=== PATIENT | male | born 2000 | race Caucasian/White ===

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

== ENCOUNTER → 2020-01-09 | Outpatient (CLI) | payer OTHER | LOC: BHSO 13:00 | DX: F41.1 Generalized anxiety disorder (principal) ==

== ENCOUNTER → 2020-01-30 | Outpatient (CLI) | payer OTHER | LOC: BHSO 13:52 | DX: F41.1 Generalized anxiety disorder (principal) ==

== ENCOUNTER → 2020-02-13 | Outpatient (CLI) | payer OTHER | LOC: BHSO 14:59 | DX: F41.1 Generalized anxiety disorder (principal) ==

== ENCOUNTER → 2020-03-05 | Outpatient (CLI) | payer OTHER | LOC: BHSO 14:24 | DX: F41.1 Generalized anxiety disorder (principal) ==

== ENCOUNTER → 2020-03-19 | Outpatient (CLI) | payer OTHER | LOC: BHSO 13:57 | DX: F41.1 Generalized anxiety disorder (principal) ==

== ENCOUNTER → 2020-05-02 | Outpatient (CLI) | payer OTHER | LOC: BHSO 15:01 | DX: F41.1 Generalized anxiety disorder (principal) ==

== ENCOUNTER → 2020-05-16 | Outpatient (CLI) | payer OTHER | LOC: BHSO 09:59 | DX: F41.1 Generalized anxiety disorder (principal) ==

== ENCOUNTER → 2020-05-30 | Outpatient (CLI) | payer OTHER | LOC: BHSO 10:56 | DX: F41.1 Generalized anxiety disorder (principal) ==

== ENCOUNTER → 2020-06-26 | Outpatient (CLI) | payer OTHER | LOC: BHSO 13:02 | DX: F41.1 Generalized anxiety disorder (principal) ==